=== PATIENT | female | born 1985 | race Caucasian/White ===

== ENCOUNTER 2023-07-06 13:43 | Outpatient (CLI) | payer OTHER, SELFPAY ==
--- NOTE | 2023-07-06 14:00 | CRLHL7_ITS ---
For Patients: As a result of the Cures Act, medical imaging exams and procedure reports are released immediately into your electronic medical record. You may view this report before your referring provider. If you have questions, please contact your health care provider. INDICATION: First trimester dating. TECHNIQUE: Ultrasound OB pelvis transabdominal. Real-time cornell-scale imaging of the pelvis was performed. COMPARISON: None. FINDINGS: Intrauterine gestational sac: Present. Embryo present: Yes. Embryo cardiac activity: 173 BPM. The [place] rump Length: 2.2 cm. Sonographic gestational age: 8 weeks 6 days. Sonographic estimated due date: February 09, 2024. Yolk sac: Normal. Perigestational hemorrhage: None. Ovaries and adnexae: Unremarkable. No suspicious lesions or fluid collections. IMPRESSION: Single viable intrauterine 8 weeks 6 days. No abnormalities seen. Dictated by Jona Salazar MD @ 07/07/2023 11:37:43 AM (Electronically Signed)
== END 2023-07-06 13:44 | disposition home or self-care (01) ==
LOC: US 13:44
PROVIDERS: Visit Provider Advanced Practice Midwife
DX: Z34.91 Encounter for supervision of normal pregnancy, unspecified, first trimester (principal); Z3A.08 8 weeks gestation of pregnancy
CPT/HCPCS: 76801; 86703; 86706; 86803; 86850; 86900; 86901; 87086; 87340; 87491; 87591

== ENCOUNTER 2023-07-06 15:40 | Outpatient (CLI) | payer OTHER, SELFPAY | END 2023-07-06 15:41 | disposition home or self-care (01) | LOC: NFLDREF 07-07 00:04 | PROVIDERS: Visit Provider Advanced Practice Midwife | DX: Z34.91 Encounter for supervision of normal pregnancy, unspecified, first trimester (principal) | CPT/HCPCS: 86592; 86703; 86704; 86706; 86762; 86787; 86803; 86850; 86900; 86901; 87086; 87340; 87491; 87591 ==

== ENCOUNTER 2023-10-04 07:07 | Outpatient (CLI) | payer OTHER, SELFPAY ==
--- NOTE | 2023-10-04 07:15 | US_ITS ---
Patient: PK LIZARRAGA Facility:?[facility] Patient ID:?[id number] Site Patient ID:?[id number]. Site :?[id number] Study:?US-OB Pelvis FOLLOW UP-10/04/2023 7:56:29 AM Ordering Physician:MARZENA MCKINNON Final Report: INDICATION: Third trimester scan, evaluate growth. COMPARISON: 07/06/2023 TECHNIQUE: Real time cornell scale imaging of the fetus was performed. FINDINGS: Sonographic imaging demonstrates a single living intrauterine gestation. Fetus demonstrates a regular cardiac rate of 124 beats per minute. Fetus has a vertex position. The placenta lies anteriorly. Amniotic fluid volume appears normal and there is a single deepest vertical pocket: 5.4 cm. The estimated weight is 457gm which lies at the 52nd %. BPD 66th percentile. HC 40th percentile. AC 56th percentile. FL 35th percentile. The HC/AC ratio measures 1.14 range (1.06-1.23). IMPRESSION: Sonographic gestational age 21 weeks 6 days and sonographic due date 02/08/2024. Good correlation with dates. Normal interval growth. Estimated weight 52nd percentile. Abdominal circumference 56th percentile. Dictated by Cabrera Collins MD @ 10/04/2023 12:12:49 PM Signed by:?Cabrera Collins MD @10/04/2023 12:12:49 PM (Electronic Signature)
== END 2023-10-04 07:08 | disposition home or self-care (01) ==
PROVIDERS: Visit Provider Obstetrics & Gynecology
DX: O09.522 Supervision of elderly multigravida, second trimester (principal); Z3A.21 21 weeks gestation of pregnancy
CPT/HCPCS: 76816

== ENCOUNTER 2023-11-22 08:16 | Outpatient (CLI) | payer OTHER, SELFPAY | END 2023-11-22 08:17 | disposition home or self-care (01) | LOC: NFLDREF 11-27 08:14 | PROVIDERS: Visit Provider Obstetrics & Gynecology | DX: Z34.93 Encounter for supervision of normal pregnancy, unspecified, third trimester (principal) | CPT/HCPCS: 86592 ==

== ENCOUNTER 2023-12-07 12:09 | Outpatient (CLI) | payer OTHER, SELFPAY ==
--- NOTE | 2023-12-07 12:15 | US_ITS ---
Patient: PK LIZARRAGA Facility:?[facility] Patient ID:?[id number] Site Patient ID:?[id number]. Site :?1985 Study:?US-OB Pelvis OB F/U-12/07/2023 12:43:50 PM Ordering Physician:Emy Leahy Final Report: OBSTETRICAL ULTRASOUND FOLLOW-UP, 12/07/2023 INDICATION: Size-dates discrepancy/growth. EBONIE by LMP: 02/09/2024 Gestational age: 30 weeks 6 days COMPARISON: 10/04/2023, 09/05/2023 MFM. TECHNIQUE: Transabdominal obstetrical ultrasound. FINDINGS: Gestation: Single Cervix: Visualized, 3.5 cm positioning: Vertex Amniotic fluid: 5.8 cm SDP Placenta position: Anterior heart rate: 150 bpm BIOMETRY: BPD: 7.95 cm, 31 weeks 6 days, 72% HC: 28.7 cm, 31 weeks 4 days, 32% AC: 26.2 cm, 30 weeks 2 days, 30% FL: 5.8 cm, 30 weeks 3 days, 25% FL/AC Ratio: 22.26% HC/AC ratio: 1.10 EFW: 1606 grams, 3 lbs. 9 oz. age by this ultrasound: 31 weeks 0 days EBONIE by this US: 02/08/2024 Percentile by EBONIE: 29.7% IMPRESSION: Single live intrauterine gestation with composite gestational age of 31 weeks 0 days and EBONIE of 02/08/2024. Estimated weight is 1606 grams which lies at the 30th percentile. TANIA BERGER M.D. Diagnostic/Breast Radiologist [email or web address] TKP/claudia D& Transcribed: 12:[address]/Dictated by: Tania Berger MD @ 12/08/2023 9:46:00 AM Signed by:Otilia Berger MD @12/10/2023 10:47:45 AM (Electronic Signature)
== END 2023-12-07 12:10 | disposition home or self-care (01) ==
LOC: US 12:10
PROVIDERS: PCP Obstetrics & Gynecology; Visit Provider Obstetrics & Gynecology
DX: O36.5930 Maternal care for other known or suspected poor fetal growth, third trimester, not applicable or unspecified (principal); Z3A.31 31 weeks gestation of pregnancy
CPT/HCPCS: 76816

== ENCOUNTER 2024-01-12 10:22 | Outpatient (CLI) | payer OTHER, SELFPAY ==
[2024-01-13 14:25] LABS: Strep B DNA Probe Negative (Negative)
[2024-01-13 14:41] LABS: Strep B Susceptibility Needed? No
== END 2024-01-12 10:23 | disposition home or self-care (01) ==
LOC: NFLDREF 10:22
PROVIDERS: Visit Provider Obstetrics & Gynecology
DX: Z34.93 Encounter for supervision of normal pregnancy, unspecified, third trimester (principal); Z3A.36 36 weeks gestation of pregnancy
CPT/HCPCS: 87081; 87653

== ENCOUNTER 2024-01-22 12:22 | Outpatient (CLI) | payer OTHER, SELFPAY ==
--- NOTE | 2024-01-22 12:30 | CRLHL7_ITS ---
For Patients: As a result of the Cures Act, medical imaging exams and procedure reports are released immediately into your electronic medical record. You may view this report before your referring provider. If you have questions, please contact your health care provider. INDICATION: Size date discrepancy TECHNIQUE: Real time cornell scale imaging of the fetus was performed as well as color Doppler and spectral Doppler analysis of the umbilical artery. COMPARISON: 12/07/2023 FINDINGS: Sonographic imaging demonstrates a single living intrauterine gestation. Fetus demonstrates a regular cardiac rate of 163 beats per minute. Fetus has a vertex position. The placenta lies right anterior. Amniotic fluid volume appears normal and there is a single deepest pocket of 5.1 cm. The estimated weight is 2564gm which lies at the 8th %. On the prior OB ultrasound dated 12/07/2023 the estimated weight was at the 30th percentile. There is adequate diastolic blood flow within the umbilical artery. The S/D ratio measures 2.1. BPD 56th percentile. HC 25th percentile. AC less than 3rd percentile. FL 3rd percentile. The fetus was active and demonstrated normal breathing movements. There was normal flexion and extension of the trunk and extremities. IMPRESSION: Normal biophysical profile score 8/8. Sonographic gestational age 35 weeks 6 days and sonographic due date of 02/20/2024. Sonographic age 11 days behind the clinical age. Estimated weight at the 8th percentile, abdominal circumference less than 3rd percentile. Dictated by Cabrera Collins MD @ 01/22/2024 1:45:18 PM (Electronically Signed)
== END 2024-01-22 12:23 | disposition home or self-care (01) ==
PROVIDERS: Visit Provider Obstetrics & Gynecology
DX: O36.5930 Maternal care for other known or suspected poor fetal growth, third trimester, not applicable or unspecified (principal); Z3A.35 35 weeks gestation of pregnancy
CPT/HCPCS: 76816; 76819; 76820

== ENCOUNTER 2024-01-23 06:55 | Inpatient (IN) | payer OTHER, SELFPAY ==
[2024-01-23] VITALS (31 sets, daily range): BP systolic 105–132; BP diastolic 58–76; PULSE 75–121; RESP 16; TEMP 36.7–36.9; O2SAT 85–100; BMI 22.4
--- NOTE | 2024-01-23 08:39 | P.LDBA_ITS ---
Subjective History of Present Illness Date Seen: 01/23/24 Narrative: Patient is being admitted to Labor and Delivery for IOL due to severe IUGR. She is a 39 year old at 37 4/7 weeks gestation. Her full history and physical was dictated by Dr. Call on 01/22/24. Please see this for details. Patient was measuring smaller than dates, US repeated yesterday and findings consistent with severe IUGR due to AC <3%. Normal amount of amniotic fluid, normal umbilical Doppler yesterday. Recommendation was given for delivery since she is more than 37 weeks. Specific Issues/Plans Partner: Ankur. Children: Octavio Garcia. Baby: boy! H&P completed by Troy Rivera, KUSHAL, CNM on 01/22/2024 1. IUGR, AC <3%ile, Total EFW 8.1% at 37.3 weeks gestation * Lagging fundal height * Growth US at 30 weeks: EFW 29.7%tile, AC 30%tile. * IOL 01/22 at 37.4, consent signed 2. AMA * Declines genetic screening * Level II u/s ordered 09/05/2023: Isolated single choroid plexus cyst otherwise normal survey. Patient declined NIPT. M recommended changing EBONIE to 02/09/2024, based on US at 8 6/7 weeks and h/o short cycles. (Initially, EBONIE by LMP 01/2924). * Growth ultrasound recommended in 4 weeks: EFW 457 g or 1 lb (52%), BPD 66%, HCT 40%, AC 56%, FL 35%, SDP 5.4 cm. 3. Anxiety * currently stable on citalopram 10mg daily * Sees counselor every other week 4. Smoker, encouraged to stop/decrease and take vitamin C NEEDS Pap . 11/01/2021 NILM, HPV Positive other high risk, no repeat pap in records Tdap: Declined 12/07/2023. OB - Problem Based A/P Additional Plan (1) Intrauterine growth restriction (IUGR) affecting care of mother, third trimester, single gestation: Status: Acute (2) Tobacco abuse: Status: Acute (3) Anxiety: Problem details: Currently stable on citalopram Status: Acute Plan 1. IOL due to severe IUGR. Patient was found 2cm/50% in clinic yesterday. Plan would be for IV Oxytocin and AROM. Due to labor and delivery unit status we cannot safely start IOL at this moment. We will continue to monitor baby. Patient was encouraged ambulation, nipple stimulation to try to continue to st imulate start of labor as she has been having some uterine contractions that she would describe as very uncomfortable. 2. GBS negative, no need for antibiotic prophylaxis. 3. Epidural if patient desires. OB Exam Physical Exam Vital signs: Temp Pulse BP Pulse Ox 98.1 F 86 120/76 98 01/23/24 07:19 01/23/24 07:18 01/23/24 07:18 01/23/24 07:19 Detailed Labor and Delivery Exam Patient Gravid: Yes Contraction intensity: Mild Fetus (Single) Heart Rate Baseline: 145 Monitor Accelerations: Present Monitor Decelerations: None Intermediate Variability: Moderate (6-25)
[2024-01-23] MEDS: ACETAMINOPHEN 500 MG TABLET 1000 MG PO ×2 (12:04→22:34)
[2024-01-23 12:44] LABS: Basophils Percent Auto 0.2 % (0.0-3.0); Eosinophils Percent Auto 0.4 % (0.0-7.0); Hematocrit 35.7 % (33.0-51.0); Hemoglobin* 12.3 gm/dL (12.0-16.0); Immature Granulocytes Pct Auto 0.9 %; Lymphocytes Percent Auto 14.8 % (20-44); Mean Corpuscular HGB Conc 35 gm/dL (32-36); Mean Corpuscular Hemoglobin 34 pg (26-34); Mean Corpuscular Volume 98 fL (80-100); Neutrophils Percent Auto 76.7 % (42.0-72.0); Platelet Count* 234 K/uL (140-440); RDW Coefficient of Variation % 12.9 % (11.5-15.5); Red Blood Count 3.65 m/uL (4.00-5.20); White Blood Count* 13.68 K/uL (4.50-11.00)
[2024-01-23] MEDS: LACTATED RINGERS 1000 ML 1,000 ML 125 ML IV (12:45)
[2024-01-23 12:46] LABS: Slide Review Reflex No
[2024-01-23] MEDS: OXYTOCIN 30 unit/500 ML in NS 30 UNIT/500 ML BAG IVPB (12:49)
[2024-01-23] MEDS: fentaNYL 100 MCG/2 ML inj IVP ×2 (13:57→15:36)
[2024-01-23] MEDS: OXYTOCIN 30 unit/500 ML in NS 30 UNIT/500 ML BAG IV (14:45)
[2024-01-23] MEDS: OXYTOCIN 30 unit/500 ML in NS 30 UNIT/500 ML BAG 300 UNIT IVPB (16:38)
--- NOTE | 2024-01-23 16:49 | W.PM.OBVAGDE ---
OB Procedure Vag Delivery Mother Details Mother Details: The patient is a 39 year-old, 5, Para 2, admitted on 01/23/24 at 37 4/7 Days gestation for IOL due to severe IUGR diagnosis. : 5 Para: 3 Weeks Gestation: 37.4 Admission Date: 01/23/24 Additional Details Amniotic Membrane Status: AROM Amniotic Membrane Rupture Date: 01/23/24 Amniotic Membrane Rupture Time: 11:55 Amniotic Membrane Fluid Description: Clear Analgesia/Anesthesia Type: Fentanyl Waterbirth: No Pitcoin: Yes Intrapartal Events: Labor Induction Induction Method: per pitocin protocol and AROM Labor Onset: 11:55 Complete: 16:22 Pushin:24 Heart: heart tones during second stage were category 2. When patient was found complete and started pushing, heart rate dropping to the 70s, did have FHR acceleration with scalp stimulation, but then decelerated again quickly. Oxytocin was d/c, IVF bolus given, position changes attempted. Mom was pushing effectively the first push but then pain was increased and she was not as effective pushing her 2nd and 3rd time with each contraction. During her first pushing effort she did move baby to +2,+3 station. heart rate continued to be more persistently in the 70s and recommendation was given to place vacuum. Verbal consent was obtained, OA presentation had been confirmed with previous exams, the vacuum cup was placed at least 2 cm in front of posterior fontanelle. The cup was evaluated and found free of maternal vaginal tissue. With maternal pushing effort, the pressure was set to the green zone and gentle traction was placed with my right hand and my left over the cup. Continuous descent noted and vertex was advanced to perineum where vacuum pressure was immediately released and removed, then assisted delivery of the body. Delivery Details Delivery Date: 01/23/24 Delivery Time: 16:35 Route of delivery: vacuum extraction Gender: Male Viability: Alive; Heart Rate Present Position at Delivery: OA Delivery Details: Delivered over intact perineum via vacuum assisted vaginal delivery. was placed on maternal abdomen.? Cord was clamped and cut after a 30-60 second delay. Nose and mouth were bulb suctioned.? Infant weight pending. 1 Minute Interval Total Score: 6 5 Minute Interval Total Score: 9 Additional Details Shoulder Dystocia: No Placenta Delivery Time: 16:40 Placental Delivery Description: Spontaneous Procedure Done: Global Blood Loss: 100 Laceration: Periurethral - 1st Degree (Not bleeding, not repaired) Episiotomy Description: None Blood Loss Measurement Type: QBL Bakri Used: No Sponge/Need Count Correct: Yes Cord Vessel Description: 3 Vessels Indication for instrumentation: nonreassuring FHR tracing Event Summary Status: Mother and were stable after delivery. Disposition: floor
[2024-01-23] MEDS: IBUPROFEN 600 MG TABLET PO (18:00)
[2024-01-24 03:39] VITALS: BP 112/68; PULSE 69; RESP 16; TEMP 37; O2SAT 97
[2024-01-24] MEDS: IBUPROFEN 600 MG TABLET PO ×2 (03:43→12:57)
[2024-01-24 07:01] LABS: Hemoglobin* 12.3 gm/dL (12.0-16.0)
[2024-01-24 08:40] VITALS: BP 111/71; PULSE 78; RESP 18; TEMP 37.1; O2SAT 97
[2024-01-24] MEDS: ACETAMINOPHEN 500 MG TABLET 1000 MG PO (08:55)
--- NOTE | 2024-01-24 12:08 | P.DS_ITS ---
DS: Providers Provider Date Seen: 01/24/24 Date of admission: 01/23/24 06:55 Primary care physician: Not a Local Provider Admitting Clinician: Antonia Kimble MD Attending Physician on discharge: Antonia Kimble MD Date of Discharge: 01/24/24 DS: Diagnosis Discharge Diagnosis (1) Lactating mother: Status: Acute (2) care following vaginal delivery: Status: Acute (3) Anxiety: Status: Acute Problem details: Currently stable on citalopram (4) ADHD (attention deficit hyperactivity disorder): Status: Chronic (5) Tobacco abuse: Status: Acute Exam Narrative: Exam Narrative: GENERAL APPEARANCE:? normal affect, alert, no distress? MOOD:? appropriate? CHEST:? clear to auscultation and percussion? HEART:? regular rate and rhythm? ABDOMEN:? soft, non-tender the uterine fundus is U/2 and is appropriate for the stage of recovery.? PERINEUM:? mild edema of the perineum, there is a 1st degree periurethral laceration that is healing well.? EXTREMITIES:? normal and no edema? Const: Vital Signs, click to edit/add: Vital Signs - 24 hr 01/23/24 12:45 01/23/24 12:45 01/23/24 14:02 Temperature 98.5 F Pulse Rate 88 82 Pulse Rate [Pulse Oximeter] Respiratory Rate 16 Blood Pressure 125/67 121/70 Blood Pressure [Le ft Arm] Pulse Oximetry 99 Oxygen Delivery Me thod 01/23/24 14:02 01/23/24 14:45 01/23/24 15:42 Temperature 98.5 F 98.2 F Pulse Rate 88 Pulse Rate [Pulse Oximeter] Respiratory Rate 16 Blood Pressure 106/59 L Blood Pressure [Le ft Arm] Pulse Oximetry 97 Oxygen Delivery Me thod 01/23/24 15:42 01/23/24 16:27 01/23/24 16:32 Temperature 98.1 F Pulse Rate Pulse Rate [Pulse Oximeter] Respiratory Rate Blood Pressure Blood Pressure [Le ft Arm] Pulse Oximetry 98 100 Oxygen Delivery Me thod 01/23/24 16:33 01/23/24 16:40 01/23/24 16:44 Temperature Pulse Rate 90 Pulse Rate [Pulse Oximeter] Respiratory Rate Blood Pressure 122/71 Blood Pressure [Le ft Arm] Pulse Oximetry 85 L 100 Oxygen Delivery Me thod 01/23/24 16:45 01/23/24 16:59 01/23/24 16:59 Temperature Pulse Rate 90 Pulse Rate [Pulse Oximeter] Respiratory Rate Blood Pressure 122/68 114/66 Blood Pressure [Le ft Arm] Pulse Oximetry 100 100 Oxygen Delivery Nm thod 01/23/24 16:59 01/23/24 17:00 01/23/24 17:10 Temperature 98.3 F Pulse Rate 86 Pulse Rate [Pulse Oximeter] Respiratory Rate Blood Pressure Blood Pressure [Le ft Arm] Pulse Oximetry 100 Oxygen Delivery Nm thod 01/23/24 17:15 01/23/24 17:15 01/23/24 17:20 Temperature Pulse Rate 93 Pulse Rate [Pulse Oximeter] Respiratory Rate 16 Blood Pressure 108/65 Blood Pressure [Le ft Arm] Pulse [facility]xim[facility] 17[facility]25 01/23/24 17:30 01/23/24 17:30 Temperature Pulse Rate 90 Pulse Rate [Pulse Oximeter] Respiratory Rate 16 Blood Pressure 108/65 Blood Pressure [Le ft Arm] Pulse Oximetry 100 [facility] 17:35 01/23/24 17:40 01/23/24 17:45 Temperature Pulse Rate 82 Pulse Rate [Pulse Oximeter] Respiratory Rate Blood Pressure 107/64 Blood Pressure [Le ft Arm] Pulse Oximetry 100 100 [facility] 17:45 01/23/24 17:50 01/23/24 18:00 Temperature Pulse Rate 86 Pulse Rate [Pulse Oximeter] Respiratory Rate 16 Blood Pressure 112/66 Blood Pressure [Le ft Arm] Pulse Oximetry 100 Oxygen Delivery Nm thod 01/23/24 18:00 01/23/24 18:15 01/23/24 18:22 Temperature Pulse Rate Pulse Rate [Pulse Oximeter] Respiratory Rate 16 16 Blood Pressure Blood Pressure [Le ft Arm] Pulse Oximetry 98 Oxygen Delivery Nm thod 01/23/24 18:23 01/23/24 19:00 01/23/24 19:02 Temperature 98.1 F Pulse Rate 75 93 Pulse Rate [Pulse Oximeter] Respiratory Rate 16 Blood Pressure 105/58 L 111/66 Blood Pressure [Le ft Arm] Pulse Oximetry 98 98 Oxygen Delivery Nm thod 01/23/24 22:38 01/24/24 03:39 01/24/24 08:40 Temperature 98.3 F 98.6 F 98.8 F Pulse Rate Pulse Rate [Pulse Oximeter] 69 78 Respiratory Rate 16 16 18 Blood Pressure Blood Pressure [Le ft Arm] 114/70 112/68 111/71 Pulse Oximetry 97 97 97 Oxygen Delivery Me thod Room Air Room Air Room Air OB - DS: Summary Hospital Course Hospital Course: Yvan is a 39 year old G 5 P 3 at 37.4 weeks gestation that was admitted to the Center on 01/23/24 for IOL for severe IUGR. She had an vaginal delivery complicated by vacuum assisted delivery. She delivered a viable male . She is breast feeding and denies concerns. the patient has done well. Her pain is well controlled with current medications.? She has no new complaints.? Urinary output is adequate and she is voiding without difficulty.? Has a good appetite, is tolerating a general diet, is passing flatus, and has not had a bowel movement.? Has small amount of rubra lochia.? She is ambulating well. she is requesting discharge home at 24 hours after delivery. Peripartum Data delivery method: Vaginal Laceration description: Periurethral - 1st Degree complications: none Infant Gender: Male Discharge Plan: Home Status at Discharge Functional status at discharge: independent ambulation Overall status at discharge: patient is progressing back to baseline Time Spent with Patient Time attestation: Total time spent providing and/or coordinating discharge services: Discharge Plan Discharge Disposition: Home, Self-Care Date of Admission: 01/23/24 06:55 Attending Provider on Discharge: Princess Leiva Primary Care Provider: Provider,Not a Local Condition: Stable Anticipated Discharge Date/Time: 01/24/24 19:00 Discharge Medications: New docusate sodium 100 mg Capsule 100 mg PO DAILY Qty: 90 0RF Rx Instructions: Take 1-2 tablets daily as needed for constipation. ibuprofen 600 mg Tablet 600 mg PO Q6H PRNQty: 60 0RF Continued betamethasone dipropionate 0.05 % cream 1 applic topical QDAY PRN (Reason: rash) Qty: 45 0RF DHA 200 mg capsule 200 mg PO .daily omeprazole 40 mg capsule,delayed release(DR/EC) 40 mg PO QDAY Qty: 90 0RF citalopram 20 mg tablet 20 mg PO QDAY Qty: 90 2RF Discharge Orders: Discharge Order (Routine); Ordered 01/24/24 Ordered By: Princess Leiva Patient Education: OB Vaginal/Breast Feeding Additional Instructions: Discharge instructions were reviewed with the patient including signs and symptoms of infection and home going medications.? Lifting Restrictions: 20 pounds for 6? weeks? ?? Do not drive while taking narcotic pain meds.? Off Work or School for 6 weeks.? ?? Symptoms to report to doctor:? -Bleeding that saturates more than one pad per hour? -Passing clots larger than the size of a golf ball? -Pain not relieved by prescribed medication? -Fever above 100.4 degrees Fahrenheit? -A foul vaginal odor? -Difficulty in emotions, mood and functions? -Thoughts of hurting yourself and/or ? -Painful, reddened area in your breast? -Any drainage, redness or tenderness in your IV/epidural site? -Severe headache that doesn't improve after taking medications? -Changes in vision, including temporary loss of vision, blurred vision, and/or light sensitivity? -Upper abdominal pain (usually under ribs on the right side)? -Decrease in urination or painful, frequent urinating? -Chest pain? -Shortness of breath? -Tenderness or pain with redness and/swelling in the calf(s) of your leg? ?? Follow Up in clinic in 2 and 6 weeks.? ?? consultation services are available to all mothers and babies for the first year after delivery.? To make an appointment, please call [phone].? Activity Level: Activity as Tolerated Discharge Diet: Regular Follow Up Appointments: Provider,Not a Local [Primary Care Provider] - [facility] [Provider Group] Forms: [employer] Info Instructions
[2024-01-24 18:06] LABS: Rapid Plasma Reagin (RPR) Non Reactive (Non Reactive)
== END 2024-01-24 13:00 | disposition home or self-care (01) | DRG 560 ==
PROVIDERS: Admitting Provider Obstetrics & Gynecology; Visit Provider Obstetrics & Gynecology
DX: O36.5930 Maternal care for other known or suspected poor fetal growth, third trimester, not applicable or unspecified (principal); O76 Abnormality in fetal heart rate and rhythm complicating labor and delivery; O99.344 Other mental disorders complicating childbirth; F90.9 Attention-deficit hyperactivity disorder, unspecified type; F41.9 Anxiety disorder, unspecified; O99.334 Smoking (tobacco) complicating childbirth; F17.210 Nicotine dependence, cigarettes, uncomplicated; O70.0 First degree perineal laceration during delivery; Z3A.37 37 weeks gestation of pregnancy; Z37.0 Single live birth
CPT/HCPCS: 36415; 85018; 85025; 86592; 86850; 86900; 86901; 88307; A9270; J3010; J7120

== ENCOUNTER 2025-05-28 11:17 | Outpatient (CLI) | payer OTHER, SELFPAY | END 2025-05-28 11:18 | disposition home or self-care (01) | PROVIDERS: Visit Provider Obstetrics & Gynecology | DX: N93.9 Abnormal uterine and vaginal bleeding, unspecified (principal) | CPT/HCPCS: 80053; 82306; 84146; 84443 ==

== ENCOUNTER 2025-07-11 11:18 | Outpatient (CLI) | payer OTHER, SELFPAY | END 2025-07-11 11:19 | disposition home or self-care (01) | PROVIDERS: Visit Provider Obstetrics & Gynecology | DX: N93.9 Abnormal uterine and vaginal bleeding, unspecified (principal) | CPT/HCPCS: 82670; 83001 ==

== ENCOUNTER 2025-07-29 07:39 | Outpatient (CLI) | payer OTHER, SELFPAY | END 2025-07-29 07:40 | disposition home or self-care (01) | LOC: NFLDREF 08-04 04:29 | PROVIDERS: Visit Provider Obstetrics & Gynecology | DX: N93.9 Abnormal uterine and vaginal bleeding, unspecified (principal) | CPT/HCPCS: 84144 ==